=== PATIENT | female | born 1990 ===

== ENCOUNTER 2019-12-01 18:06 | Emergency (ER) | payer MEDICAID ==
[~2019-12-01] VITALS: Ht 177.8 cm; Wt 113.0 kg
--- NOTE | 2019-12-01 18:56 | NUR ---
ASSUMED CARE OF PT AT THIS TIME. PT SITTING UP IN BED WATCHING TELEVISION. PT DENIES SOB OR CP AT THIS TIME. RESPIRATIONS EVEN AND UNLABORED ON RA. RT THIGH SORENESS. PLAN FOR IV TO PREPARE FOR CTA. PT VERBALIZES UNDERSTANDING.
[2019-12-01 19:02] LABS: BASOPHILS # (AUTO) 0.02 x10^3/uL (0-0.1); BASOPHILS % (AUTO) 0 % (0-1); EOSINOPHILS % (AUTO) 2 % (1-7); LYMPHOCYTES # (AUTO) 1.83 x10^3/uL (1-3.4); LYMPHOCYTES % (AUTO) 41 % (22-44); MD NO; MEAN CORPUSCULAR HEMOGLOBIN 25.7 pg (27.0-34.8); MEAN CORPUSCULAR VOLUME 80.1 fL (80-100); MEAN PLATELET VOLUME 7.8 fL (7.4-10.4); MONOCYTES # (AUTO) 0.34 x10^3/uL (0.2-0.8); MONOCYTES % (AUTO) 8 % (2-9); NEUTROPHILS # (AUTO) 2.19 x10^3/uL (1.8-6.8); NEUTROPHILS % (AUTO) 49 % (42-75); PLATELET COUNT 335 x10^3/uL (130-400); RED BLOOD COUNT 4.01 x10^6/uL (3.82-5.3); RED CELL DISTRIBUTION WIDTH 20.5 % (9.6-15.2)
[2019-12-01 19:10] LABS: ALANINE AMINOTRANSFERASE 40 U/L (12-78); ALBUMIN 3.2 g/dL (3.4-5.0); ANION GAP 9 mmol/L (5-15); CALCIUM 8.5 mg/dL (8.5-10.1); CHLORIDE 110 mmol/L (98-107); CREATININE 0.68 mg/dL (0.55-1.02)
[2019-12-01 19:14] LABS: ALKALINE PHOSPHATASE 105 U/L (45-117); BILIRUBIN,TOTAL 0.1 mg/dL (0.2-1.0); TOTAL PROTEIN 7.3 g/dL (6.4-8.2)
[2019-12-01] MEDS ORDERED: OMNIPAQUE 350 MG/ML, 100ML BOTTLE ONE (19:42)
--- NOTE | 2019-12-01 19:48 | NUR ---
PT RETURNED FROM CTA. NAD NOTED AT THIS TIME. RESPIRATIONS EVEN AND UNLABORED ON RA. PO ICE PROVIDED. PT WATCHING TELEVISION. AWAITING IMAGING RESULTS. CURTAIN PULLED CLOSED FOR PT PRIVACY.
[2019-12-01 20:53] VITALS: BP 105/68
--- NOTE | 2019-12-01 20:54 | NUR ---
PT AMBULATES WELL TO BATHROOM INDEPENDENTLY, AND BACK TO ROOM. NAD NOTED AT THIS TIME. CHART UP FOR RECHECK.
--- NOTE | 2019-12-01 21:07 | NUR ---
ERMD AT BEDSIDE DISCUSSING DC PLAN AND INSTRUCTIONS.
== END 2019-12-01 21:18 | disposition home or self-care (01) ==
LOC: ED 18:48
DX: I26.99 Other pulmonary embolism without acute cor pulmonale (principal); I82.402 Acute embolism and thrombosis of unspecified deep veins of left lower extremity
CPT/HCPCS: 36415; 71275; 80053; 84703; 85025; 99285; Q9967